=== PATIENT | female | born 1975 | race Caucasian/White ===

== ENCOUNTER → 2021-03-14 09:54 | Outpatient (BNVA) | payer OTHER, SELFPAY | PROVIDERS: PCP Internal Medicine; Visit Provider Anesthesiology ==

== ENCOUNTER → 2021-03-22 15:24 | Outpatient (BNVA) | payer OTHER, SELFPAY | PROVIDERS: Visit Provider Nurse Practitioner Family | DX: M62.838 Other muscle spasm (principal); M79.7 Fibromyalgia; M47.816 Spondylosis without myelopathy or radiculopathy, lumbar region; M25.50 Pain in unspecified joint; Z96.89 Presence of other specified functional implants | CPT/HCPCS: 99202 ==

== ENCOUNTER → 2021-04-27 10:43 | Outpatient (BNVA) | payer OTHER, SELFPAY | PROVIDERS: Visit Provider Nurse Practitioner Family | DX: M62.838 Other muscle spasm (principal); M79.7 Fibromyalgia; M47.816 Spondylosis without myelopathy or radiculopathy, lumbar region; M25.50 Pain in unspecified joint; Z96.89 Presence of other specified functional implants | CPT/HCPCS: 99212 ==

== ENCOUNTER → 2021-07-06 15:20 | Outpatient (BNVA) | payer OTHER, SELFPAY | PROVIDERS: PCP Internal Medicine; Visit Provider Anesthesiology | DX: M62.838 Other muscle spasm (principal); M79.7 Fibromyalgia; M47.816 Spondylosis without myelopathy or radiculopathy, lumbar region; M25.50 Pain in unspecified joint; Z96.89 Presence of other specified functional implants; Z79.899 Other long term (current) drug therapy | CPT/HCPCS: 99212 ==

== ENCOUNTER 2021-08-23 06:17 | Outpatient (REF) | payer OTHER, SELFPAY ==
--- NOTE | ~2021-08-23 | FL_ITS ---
EXAMINATION: XR FLUOROSCOPY WITH IMAGES CLINICAL INFORMATION: Placement of spinal simulation device. COMPARISON: None. TECHNIQUE: Fluoroscopy performed by not listed. Fluoroscopy time: 1 minutes DAP: 0.322 Gycm2 Images: 2 FL/FL guidance in treatment room FINDINGS/IMPRESSION: Fluoroscopy was performed for procedural guidance. Spinal stimulation lead tips terminate at about the level of T8-T9. Please refer to the procedure report for more detailed findings.
== END 2021-08-23 06:18 | disposition home or self-care (01) ==
LOC: HO.RADIR 06:17
PROVIDERS: Visit Provider Anesthesiology
DX: Z13.89 Encounter for screening for other disorder (principal)

== ENCOUNTER → 2021-09-12 14:54 | Outpatient (BNVA) | payer OTHER, SELFPAY | PROVIDERS: PCP Internal Medicine; Visit Provider Anesthesiology | DX: M62.838 Other muscle spasm (principal); M79.7 Fibromyalgia; M47.816 Spondylosis without myelopathy or radiculopathy, lumbar region; M25.50 Pain in unspecified joint; Z96.89 Presence of other specified functional implants | CPT/HCPCS: 99212 ==

== ENCOUNTER 2021-09-29 10:23 | Day surgery (SDC) | payer OTHER, SELFPAY ==
[2021-09-22 15:52] VITALS: BMI 28.3
[2021-09-29 11:00] LABS: UPreg QC Valid YES; Urine Pregnancy NEGATIVE (NEGATIVE)
[2021-09-29 11:04] VITALS: BP 108/68; PULSE 104; RESP 20; TEMP 36.3; O2SAT 97
--- NOTE | 2021-09-29 11:12 | MHC.SHP ---
Pre-Procedural Eval Section A Date of Service: 09/29/21 The patient is an INPATIENT: No Changes since office visit: Yes Patient answered all questions The History & Physical has been completed within 30 days and I have reviewed it.: No Section B Chief Complaint: functional implants Details of Present Illness: end of life of the battery Relevant Family History (Specify if Yes): No Relevant Social History: None Present Medications: see Short Stay Collaborative assessment Medical History: No relevant PMH History of Previous Operations: No relevant previous surgery Allergies: Allergies Allergy/AdvReac Type Severity Reaction Status Date / Time gabapentin AdvReac Severe chest pain Verified 09/29/21 10:41 Review of Systems Sugical H&P ROS: Negative: Constitution, Cardiovascular, Respiratory, Neurological, Psychiatric, Hem-Onc, Allergic/Immunologic, Gastrointestinal, Genitourinary, Musculoskeletal, Integumentary, Endocrine and Eyes/Ears/Nose/Throat Exam Surgical H&P Exam: Normal: HEENT, Normal: Heart, Normal: Lungs, Normal: Extremities, Normal: Abdomen, Normal: Skin and Normal: Neurological Plan Diagnosis/Plan: Unchanged I have reviewed the history and physical and performed a pertinent physical examination on my patient. No changes have occurred unless specified.
[2021-09-29] MEDS: Lactated Ringers 1,000 ML 50 ML IVCONT (12:12)
[2021-09-29 13:20] VITALS: BP 115/78; PULSE 84; RESP 16; TEMP 36.2; O2SAT 98
--- NOTE | 2021-09-29 13:27 | P.BOP_ITS ---
Brief Operative Note Date of Service: 09/29/21 Pre-op diagnosis: end of life of the MRI incompatible battery of the SCS system. Post-op diagnosis: same Procedure: replacement of the MRi incompatible [employer] battery with MRI compatible [employer] battery. Implants: [employer] battery Surgeon: Dallas Mitchell MD Anesthesia: MAC Was an [employer] Loader used for this Procedure?: No Estimated blood loss (mL): 6 Condition: stable Disposition: PACU
[2021-09-29 13:35] VITALS: BP 123/78; PULSE 79; RESP 16; O2SAT 98
[2021-09-29] MEDS: oxyCODONE HCl Immed Release 5 MG TABLET PO (13:41)
[2021-09-29 13:50] VITALS: BP 132/88; PULSE 82; RESP 16; TEMP 36.2; O2SAT 99
--- NOTE | 2021-09-29 14:42 | HO.ANESPROP2 ---
HPI - Anesthesia Eval Consult details Narrative: 46 F for IPG change PMFSH Active Problems Active Problems: All Active Problems (Updated 09/22/21 @ 15:48 by Phuong Hansen RN) S/P insertion of spinal cord stimulator (Acute) Muscle spasms of lower extremity (Acute) Fibromyalgia (Acute) Spondylosis of lumbar spine (Acute) Polyarthralgia (Acute) Past Medical History Medical History Anxiety and depression Asthma Back pain Bilateral wrist pain COVID-19 vaccine series completed Fibromyalgia GERD (gastroesophageal reflux disease) Family History Family history of problems with anesthesia: No Surgical History Surgical History History of back surgery Hx of section Status post insertion of spinal cord stimulator History of Problems with Anesthesia: No Social History Social History Are you a primary before and after school daycare worker to a significant other at home: No Do you presently have visiting nurse or other home services: No Patient Tobacco Use Status: Current someday Tobacco user Tobacco use type: Cigarette Cigarette Packs Per Day: 0 Cigarettes Per Day: 2 Years Smoked: 10 yrs Meds Allergies Allergy/AdvReac Type Severity Reaction Status Date / Time gabapentin AdvReac Severe chest pain Verified 09/29/21 10:41 Home Medications Medication Instructions Recorded Confirmed Last Taken Type albuterol sulfate 90 mcg/actuation 2 puff INHALATION Q4H PRN 03/14/21 09/22/21 Unknown History aerosol inhaler cholecalciferol (vitamin D3) 50 50 mcg PO DAILY 03/14/21 09/22/21 Unknown History mcg (2,000 unit) tablet diclofenac sodium 1 % topical gel g TOPICAL 03/14/21 04/27/21 Unknown History fluoxetine 20 mg capsule 20 mg PO QAM 03/14/21 09/22/21 Unknown History hydroxyzine pamoate 25 mg capsule 25 mg PO 03/14/21 04/27/21 Unknown History lidocaine-prilocaine 2.5 %-2.5 % g TOPICAL 03/14/21 04/27/21 Unknown History topical cream omeprazole 20 mg capsule,delayed 20 mg PO DAILY 03/14/21 09/22/21 Unknown History release pregabalin 225 mg capsule 225 mg PO BID 03/14/21 09/22/21 Unknown History multivitamin with folic acid 400 tab PO 09/22/21 09/22/21 Unknown History mcg tablet (Daily-Manpreet (with folic acid)) tizanidine 2 mg tablet 1 tab PO BEDTIME 09/22/21 09/22/21 Unknown History Exam Exam Date and Time: September 29, 2021 1442 Height,Weight and Vital Signs: Height 5 ft 1 in Weight 150 lb Last Vital Signs Temp 97.2 F 09/29/21 13:50 Pulse 82 09/29/21 13:50 Resp 16 09/29/21 13:50 BP 132/88 09/29/21 13:50 Pulse Ox 99 09/29/21 13:50 Pertinent Lab Results Pertinent Lab Results: Laboratory Tests 09/29/21 10:45 Urine Test NEGATIVE Airway TM Dist: >3cm Neck ROM: Full Assessment and Plan Assessment Anesthesia Assessment: Anesthesia Plan Discussed and Chart Reviewed Final Anesthetic Review Family History of Problems with Anesthesia: No History of Problems with Anesthesia: No NPO: Yes ASA Class: II Final Preanesthetic Review: No Changes in Pt Med Stat, Meds/Allgs Chart Reviewed, Consent Obtained/Reviewed and Anes Risks/Benef Reviewed Patient Risk: Low Procedure Risk: Low Anesthetic Plan Anesthetic Plan: MAC: Disposition: Standard PACU
--- NOTE | 2021-09-29 16:07 | P.OP_ITS ---
Operative Note Operative Note Date of Service: 09/29/21 Narrative: Informed consent was obtained from the patient all risks benefits were explained including risk of bleeding infection and hematoma formation in the area of the battery implantation. The patient was taking to the operating room where she was positioned prone on operating table. [place] [employer] monitors were applied and patient was deeply sedated. Time-out was performed delineating name and date of of the patient, correct site and side of the procedure, need for antibiotics (2 g of cefazolin were given approximately 10 minutes before the incision) DVT prophylaxis need, risk for fire, all operating room staff was participating in the time-out procedure. Lower back of the patient was prepped with ChloraPrep and draped with full body drape including Ioban film . Previous scar in the left upper buttock was located on the patient's skin, injected with lidocaine 2% mixed with bupivacaine 0.5%. After that using 10 blade scalpel linear incision was performed along side the previously made incision. Thorough hemostasis was obtained using electrocautery device. Capsule of the battery pocket was located at the bottom of the wound and incised with Metzenbaum scissors. weitlaner retractor was used to open the wound and the battery pocket. Battery was located and delivered to the level of the skin. Thorough hemostasis was performed in the wound. Wound was irrigated with vancomycin containing normal saline. Hexagonal screw was used to relieve the 4 connecting electrode screws and after that for connecting electrodes were removed from the old battery. New battery was brought on the skin and carefully connected to the existing electrodes. After that anchoring sutures Tycron 1.0 were applied to most superior lateral and central portions of the wound. Anchoring sutures Tycron 1.0 were connected to orifices on the battery and battery was dislodged into the pocket. Care was taken to keep the connecting leads behind the body of the battery. After that anchoring sutures were tied and thorough irrigation was repeated on the wound using normal saline containing vancomycin. After that 0 Vicryl was used to close the battery pocket, 2-0 Vicryl was used to approximate the level of the skin. [place] were applied to the level of the skin. Sterile dressing with bacitracin ointment was applied to staple line. The patient tolerated procedure well, she was awaken and taken outside of the operating room to recovery room. She recovered uneventfully.
== END 2021-09-29 14:20 | disposition home or self-care (01) ==
PROVIDERS: Anesthesiology; Visit Provider Anesthesiology
PROC: (CPT 63685; principal; 2021-09-29 11:30)
DX: Z45.42 Encounter for adjustment and management of neurostimulator (principal); M54.50 Low back pain, unspecified; M47.816 Spondylosis without myelopathy or radiculopathy, lumbar region; M62.838 Other muscle spasm; M96.1 Postlaminectomy syndrome, not elsewhere classified; M79.605 Pain in left leg; M79.604 Pain in right leg; M25.532 Pain in left wrist; M25.531 Pain in right wrist; M21.222 Flexion deformity, left elbow; M21.221 Flexion deformity, right elbow; M79.7 Fibromyalgia; Z96.89 Presence of other specified functional implants
CPT/HCPCS: 63685; 81025; C1787; C1820; J0690; J3010; J3370

== ENCOUNTER → 2021-10-05 08:48 | Outpatient (BNVA) | payer OTHER, SELFPAY | PROVIDERS: Visit Provider Anesthesiology | DX: M62.838 Other muscle spasm (principal); M79.7 Fibromyalgia; M47.816 Spondylosis without myelopathy or radiculopathy, lumbar region; M25.50 Pain in unspecified joint; Z96.89 Presence of other specified functional implants | CPT/HCPCS: 99212 ==

== ENCOUNTER → 2021-10-14 08:58 | Outpatient (BNVA) | payer OTHER, SELFPAY | PROVIDERS: Visit Provider Anesthesiology ==

== ENCOUNTER → 2021-10-19 10:46 | Outpatient (BNVA) | payer OTHER, SELFPAY | PROVIDERS: Visit Provider Anesthesiology | DX: M62.838 Other muscle spasm (principal); M79.7 Fibromyalgia; M47.816 Spondylosis without myelopathy or radiculopathy, lumbar region; M25.50 Pain in unspecified joint; Z96.89 Presence of other specified functional implants | CPT/HCPCS: 99212 ==

== ENCOUNTER → 2021-10-31 15:26 | Outpatient (BNVA) | payer OTHER, SELFPAY | PROVIDERS: Visit Provider Anesthesiology | DX: M62.838 Other muscle spasm (principal); M79.7 Fibromyalgia; M47.816 Spondylosis without myelopathy or radiculopathy, lumbar region; M25.50 Pain in unspecified joint; F17.210 Nicotine dependence, cigarettes, uncomplicated; Z96.89 Presence of other specified functional implants | CPT/HCPCS: 99212 ==

== ENCOUNTER → 2022-02-06 12:46 | Outpatient (BNVA) | payer OTHER, SELFPAY | PROVIDERS: Visit Provider Anesthesiology | DX: M62.838 Other muscle spasm (principal); M79.7 Fibromyalgia; M47.816 Spondylosis without myelopathy or radiculopathy, lumbar region; M25.50 Pain in unspecified joint; Z96.89 Presence of other specified functional implants | CPT/HCPCS: 99212 ==